=== PATIENT | female | born 1995 | race African-American/Black ===

== ENCOUNTER 2018-06-06 12:03 | Emergency (ER) | payer OTHER ==
[~2018-06-06] VITALS: Ht 170.2 cm; Wt 71.5 kg
[2018-06-06] MEDS ORDERED: IV NORMAL SALINE 1,000ML 1,000 ML IV SCH (12:26)
[2018-06-06] MEDS ORDERED: ONDANSETRON PF 4 MG/2 ML VIAL. IV ONE (12:30)
[2018-06-06 12:47] LABS: BACTERIA,URINE FEW /HPF (0-FEW); BILIRUBIN,URINE NEG (NEG); CLARITY,URINE HAZY; COLOR,URINE AMBER; GLUCOSE,URINE NEG (NEG); NITRITE,URINE NEG (NEG); RBC,URINE RARE /HPF (0-2); SQUAMOUS EPITHELIAL CELL,UR MOD /LPF; UROBILINOGEN,URINE 4 mg/dL (0.2 mg/dL)
[2018-06-06 12:57] LABS: BASO % 0 % (0-3); EOS # 0.1 x10^3/uL (0.0-0.7); EOS % 2 % (0-3); HEMATOCRIT 40.4 % (36.0-47.0); LYMPH # 1.4 x10^3/uL (1.0-4.8); LYMPH % 27 % (24-48); MEAN CORPUSCULAR HEMOGLOBIN 27 pg (25-35); MEAN CORPUSCULAR HGB CONC 32 g/dL (31-37); MEAN CORPUSCULAR VOLUME 82 fL (79-100); MONO # 0.6 x10^3/uL (0.0-1.1); MONO % 10 % (0-9); NEUT # 3.2 x10^3uL (1.8-7.7); NEUT % 60 % (31-73); PLATELET COUNT 126 x10^3/uL (140-400); RED BLOOD COUNT 4.91 x10^6/uL (3.50-5.40); RED CELL DISTRIBUTION WIDTH 16.6 % (11.5-14.5); WHITE BLOOD COUNT 5.3 x10^3/uL (4.0-11.0)
[2018-06-06 13:02] LABS: ALBUMIN 3.9 g/dL (3.4-5.0); ALBUMIN/GLOBULIN RATIO 1.1 (1.0-1.7); CALCIUM 8.8 mg/dL (8.5-10.1); CREATININE 0.8 mg/dL (0.6-1.0); GFR 109.6; POTASSIUM 3.5 mmol/L (3.5-5.1); TOTAL BILIRUBIN 0.8 mg/dL (0.2-1.0); TOTAL PROTEIN 7.5 g/dL (6.4-8.2)
[2018-06-06 13:09] VITALS: BP 136/87
[2018-06-06] MEDS ORDERED: ONDA4TAB7 PO (13:29)
--- NOTE | 2018-06-06 13:30 | PHYS DOC ---
Past History Past Medical History: Other Past Surgical History: Other Alcohol Use: Occasionally Drug Use: None Adult General Chief Complaint Chief Complaint: NAUSEA/VOMITING/DIARRHEA HPI HPI Patient is a 22 year old female who presents with complaining of nausea and vomiting during . Patient is A1 at 6 weeks of gestation with LMP of April 25, 2018 with complaining of constant nausea and one episode of vomiting daily for the last 1 week. Patient states she time she tries to eat she had nausea and episodes of vomiting. Patient complaining of decrease of urine output and episodes of [abdominal crampy pain during vomiting. Patient denies vaginal bleeding, fever and chills, focal neuro deficit. Patient states she had hyperemesis gravidarum with her previous . Patient states she was seen at [place] emergency room today and diffuse of medication and was told to follow up with [facility] tomorrow. According to [place] emergency room report patient left AMA and refused to have urine test and requested admission for hyperemesis gravidarum. She did not complaining of any abdominal pain at [facility]. Review of Systems Review of Systems Constitutional: Denies fever or chills [] Eyes: Denies change in visual acuity, redness, or eye pain [] HENT: Denies nasal congestion or sore throat [] Respiratory: Denies cough or shortness of breath [] Cardiovascular: No additional information not addressed in HPI [] GI: Reports abdominal pain, nausea, vomiting, denies bloody stools or diarrhea [ ] : Denies dysuria or hematuria [] Musculoskeletal: Denies back pain or joint pain [] Integument: Denies rash or skin lesions [] Neurologic: Denies headache, focal weakness or sensory changes [] Endocrine: Denies polyuria or polydipsia [] All other systems were reviewed and found to be within normal limits, except as documented in this note. Current Medications Current Medications Current Medications Medications (Trade) Dose Ordered Sig/Elaine Start Time Stop Time Status Last Admin Dose Admin Ondansetron HCl (Zofran) 4 mg 1X ONCE 06/06/18 12:30 06/06/18 13:00 DC 06/06/18 12:53 4 MG Sodium Chloride 1,000 ml @ 1,000 mls/hr Q1H 06/06/18 12:26 06/06/18 13:25 DC 06/06/18 12:53 1,000 MLS/HR Allergies Allergies Allergies Coded Allergies Type Severity Reaction Last Updated Verified Penicillins Allergy Unknown 06/06/18 Yes Physical Exam Physical Exam Constitutional: Well developed, well nourished, mild distress, non-toxic appearance. [] HENT: Normocephalic, atraumatic, oropharynx moist, no oral exudates, nose normal. [] Eyes: PERRLA, EOMI, conjunctiva normal, no discharge. [] Neck: Normal range of motion, no tenderness, supple, no stridor. [] Cardiovascular:Heart rate regular rhythm, no murmur [] Lungs & Thorax: Bilateral breath sounds clear to auscultation [] Abdomen: Bowel sounds normal, soft, no tenderness, no masses, no pulsatile masses. [] Skin: Warm, dry, no erythema, no rash. [] Back: No tenderness, no CVA tenderness. [] Extremities: No tenderness, no cyanosis, no clubbing, ROM intact, no edema. [] Neurologic: Alert and oriented X 3, normal motor function, normal sensory function, no focal deficits noted. [] Psychologic: Affect normal, judgement normal, mood normal. [] Current Patient Data Vital Signs Vital Signs Date Time Temp Pulse Resp B/P (MAP) Pulse Ox O2 Delivery O2 Flow Rate FiO2 06/06/18 12:03 98.5 64 14 100 Room Air Lab Results Laboratory Tests Test 06/06/18 12:10 06/06/18 12:23 06/06/18 12:32 Urine Collection Type Unknown Urine Color Carlota Urine Clarity Hazy Urine pH 7.5 Urine Specific [place] 1.020 Urine Protein 30 mg/dl (NEG-TRACE) Urine Glucose (UA) Neg mg/dL (NEG) Urine Ketones (Stick) 40 mg/dL (NEG) Urine Blood Neg (NEG) Urine Nitrite Neg (NEG) Urine Bilirubin Neg (NEG) Urine Urobilinogen Dipstick 4 mg/dL (0.2 mg/dL) Urine Leukocyte Esterase Trace (NEG) Urine RBC Rare /HPF (0-2) Urine WBC 1-4 /HPF (0-4) Urine Squamous Epithelial Cells Mod /LPF Urine Bacteria Few /HPF (0-FEW) Urine Mucus Marked /LPF POC Urine HCG, Qualitative hcg positive (Negative) White Blood Count 5.3 x10^3/uL (4.0-11.0) Red Blood Count 4.91 x10^6/uL (3.50-5.40) Hemoglobin 13.0 g/dL (12.0-15.5) Hematocrit 40.4 % (36.0-47.0) Mean Corpuscular Volume 82 fL (79-100) Mean Corpuscular Hemoglobin 27 pg (25-35) Mean Corpuscular Hemoglobin Concent 32 g/dL (31-37) Red Cell Distribution Width 16.6 % (11.5-14.5) H Platelet Count 126 x10^3/uL (140-400) L Neutrophils (%) (Auto) 60 % (31-73) Lymphocytes (%) (Auto) 27 % (24-48) Monocytes (%) (Auto) 10 % (0-9) H Eosinophils (%) (Auto) 2 % (0-3) Basophils (%) (Auto) 0 % (0-3) Neutrophils # (Auto) 3.2 x10^3uL (1.8-7.7) Lymphocytes # (Auto) 1.4 x10^3/uL (1.0-4.8) Monocytes # (Auto) 0.6 x10^3/uL (0.0-1.1) Eosinophils # (Auto) 0.1 x10^3/uL (0.0-0.7) Basophils # (Auto) 0.0 x10^3/uL (0.0-0.2) Sodium Level 136 mmol/L (136-145) Potassium Level 3.5 mmol/L (3.5-5.1) Chloride Level 101 mmol/L (98-107) Carbon Dioxide Level 25 mmol/L (21-32) Anion Gap 10 (6-14) Blood Urea Nitrogen 7 mg/dL (7-20) Creatinine 0.8 mg/dL (0.6-1.0) Estimated GFR (Cockcroft-Gault) 109.6 BUN/Creatinine Ratio 9 (6-20) Glucose Level 85 mg/dL (70-99) Calcium Level 8.8 mg/dL (8.5-10.1) Total Bilirubin 0.8 mg/dL (0.2-1.0) Aspartate Amino Transferase (AST) 12 U/L (15-37) L Alanine Aminotransferase (ALT) 14 U/L (14-59) Alkaline Phosphatase 60 U/L (46-116) Total Protein 7.5 g/dL (6.4-8.2) Albumin 3.9 g/dL (3.4-5.0) Albumin/Globulin Ratio 1.1 (1.0-1.7) EKG EKG [] Radiology/Procedures Radiology/Procedures [] Course & Med Decision Making Course & Med Decision Making Pertinent Labs reviewed. (See chart for details) Evaluation of patient in ER showed 22-year-old female patient at 6 weeks of gestation with complaining of episodes of nausea and vomiting. Patient had unremarkable physical exam and labs beta-hCG level of 37,000. Patient did not have vaginal bleeding. Patient tolerated oral intake. Patient was advised to follow-up with [facility] and prescription for Zofran was given. Dragon Disclaimer Dragon Disclaimer This electronic medical record was generated, in whole or in part, using a voice recognition dictation system. Departure Departure: Impression: Primary Impression: Hyperemesis gravidarum Disposition: HOME, SELF-CARE (@1330) Condition: IMPROVED Referrals: LUIS WISEMAN PA-C (PCP) Patient Instructions: Diet - Hyperemesis Gravidarum, Hyperemesis Gravidarum Additional Instructions: Drink plenty of liquids Follow-up with your [facility] physician in 2 or 3 days Return to ER if not getting better Scripts Ondansetron Hcl (ZOFRAN) 4 Mg Tablet 1 TAB PO Q6HRS for nausea and vomiting, #24 TAB Prov: BELGICA WEST MD 06/06/18 BELGICA WEST MD Jun 06, 2018 13:30
== END 2018-06-06 13:44 | disposition home or self-care (01) ==
LOC: ER 12:03
DX: O21.0 Mild hyperemesis gravidarum (principal); Z88.0 Allergy status to penicillin; Z3A.01 Less than 8 weeks gestation of pregnancy
CPT/HCPCS: 36415; 80053; 81001; 81025; 84702; 85025; 87086; 96361; 96374; 99283; J2405; J7030

== ENCOUNTER 2019-07-18 07:52 | Emergency (ER) | payer OTHER ==
[~2019-07-18] VITALS: Ht 170.2 cm; Wt 73.0 kg
[~2019-07-18 07:52] MED LIST: ONDA4TAB7 PO
[2019-07-18] MEDS ORDERED: ONDANSETRON PF 4 MG/2 ML VIAL. ONE (08:10)
--- NOTE | 2019-07-18 08:11 | PHYS DOC ---
Past History Past Medical History: Other Past Surgical History: Other Alcohol Use: Occasionally Drug Use: None Adult General Chief Complaint Chief Complaint: ABDOMINAL PAIN HPI HPI Patient is a 23-year-old female who presents with complaint of diarrhea with crampy abdominal pain and some nausea since 2:00 this morning. Patient had intermittent symptoms over the weekend but they seem to be improving. No reported fever although the patient states that she has felt very warm and had sweats last night. No medications taken prior to arrival. No sick contacts. Patient started her menstrual cycle on Thursday Review of Systems Review of Systems All other systems were reviewed and found to be within normal limits, except as documented in this note. Allergies Allergies Allergies Coded Allergies Type Severity Reaction Last Updated Verified Penicillins Allergy Unknown 06/06/18 Yes Physical Exam Physical Exam Constitutional: Well developed, well nourished, no acute distress, non-toxic appearance. [] HENT: Normocephalic, atraumatic, bilateral external ears normal, oropharynx moist, no oral exudates, nose normal. [] Eyes: PERRLA, EOMI, conjunctiva normal, no discharge. [] Neck: Normal range of motion, no tenderness, supple, no stridor. [] Cardiovascular:Heart rate regular rhythm, no murmur [] Lungs & Thorax: Bilateral breath sounds clear to auscultation [] Abdomen: Bowel sounds normal, soft, no tenderness, no masses, no pulsatile masses. [] Skin: Warm, dry, no erythema, no rash. [] Back: No tenderness, no CVA tenderness. [] Extremities: No tenderness, no cyanosis, no clubbing, ROM intact, no edema. [] Neurologic: Alert and oriented X 3, normal motor function, normal sensory function, no focal deficits noted. [] Psychologic: Affect normal, judgement normal, mood normal. [] EKG EKG [] Radiology/Procedures Radiology/Procedures [] Course & Med Decision Making Course & Med Decision Making Pertinent Labs and Imaging studies reviewed. (See chart for details) 0810: 23-year-old female seen for gastrointestinal-like symptoms. Will place an IV and give IV fluids and check labs. Will also check for influenza and give Zofran. 0904: Labs wnl. Will d/c. Valente Disclaimer Valente Disclaimer This electronic medical record was generated, in whole or in part, using a voice recognition dictation system. Departure Departure: Impression: Primary Impression: Viral gastroenteritis Disposition: 01 HOME, SELF-CARE Condition: STABLE Referrals: PCP,TEETEE (PCP) Patient Instructions: Viral Gastroenteritis Scripts Dicyclomine Hcl (DICYCLOMINE HCL) 20 Mg Tablet 1 TAB PO TID for Abd Cramping, #20 TAB 0 Refills Prov: EDWARD GRAY DO 07/18/19 Ondansetron (ONDANSETRON ODT) 4 Mg Tab.rapdis 4 MG PO Q6HRS for Nausea/Vomiting, #15 TAB Prov: EDWARD GRAY DO 07/18/19 EDWARD GRAY DO Jul 18, 2019 08:10
[2019-07-18 08:14] VITALS: BP 127/78
[2019-07-18] MEDS ORDERED: IV NORMAL SALINE 1,000ML 1,000 ML IV ONE (08:15)
[2019-07-18] MEDS ORDERED: ONDANSETRON PF 4 MG/2 ML VIAL. IVP ONE (08:15)
[2019-07-18 08:29] LABS: BASO % 0 % (0-3); EOS # 0.1 x10^3/uL (0.0-0.7); EOS % 1 % (0-3); HEMATOCRIT 39.4 % (36.0-47.0); HEMOGLOBIN 12.8 g/dL (12.0-15.5); LYMPH # 1.4 x10^3/uL (1.0-4.8); LYMPH % 23 % (24-48); MEAN CORPUSCULAR HEMOGLOBIN 27 pg (25-35); MEAN CORPUSCULAR HGB CONC 32 g/dL (31-37); MEAN CORPUSCULAR VOLUME 83 fL (79-100); MONO # 0.5 x10^3/uL (0.0-1.1); MONO % 8 % (0-9); NEUT # 4.1 x10^3uL (1.8-7.7); NEUT % 68 % (31-73); PLATELET COUNT 140 x10^3/uL (140-400); RED BLOOD COUNT 4.74 x10^6/uL (3.50-5.40); RED CELL DISTRIBUTION WIDTH 14.5 % (11.5-14.5); WHITE BLOOD COUNT 6.1 x10^3/uL (4.0-11.0)
[2019-07-18 08:36] LABS: CALCIUM 8.5 mg/dL (8.5-10.1); CREATININE 0.9 mg/dL (0.6-1.0); GFR 94.7; POTASSIUM 3.8 mmol/L (3.5-5.1)
[2019-07-18 08:42] LABS: ALBUMIN 3.6 g/dL (3.4-5.0); ALBUMIN/GLOBULIN RATIO 1.1 (1.0-1.7); TOTAL BILIRUBIN 0.3 mg/dL (0.2-1.0); TOTAL PROTEIN 6.9 g/dL (6.4-8.2)
[2019-07-18 08:45] LABS: BACTERIA,URINE 0 /HPF (0-FEW); BILIRUBIN,URINE NEG (NEG); CLARITY,URINE HAZY; COLOR,URINE YELLOW; GLUCOSE,URINE NEG (NEG); NITRITE,URINE NEG (NEG); SQUAMOUS EPITHELIAL CELL,UR FEW /LPF; UROBILINOGEN,URINE 0.2 mg/dL (0.2 mg/dL); WBC,URINE OCC /HPF (0-4)
[2019-07-18 08:46] LABS: U PREG PATIENT NEGATIVE (NEG)
[2019-07-18 08:53] LABS: INFLUENZA A PATIENT NEGATIVE (NEGATIVE); INFLUENZA B PATIENT NEGATIVE (NEGATIVE)
[2019-07-18] MEDS ORDERED: ONDA4TAB12 PO (09:05)
[2019-07-18] MEDS ORDERED: DICY20TA3 PO (09:05)
== END 2019-07-18 09:15 | disposition home or self-care (01) ==
LOC: ER 07:52
DX: A08.4 Viral intestinal infection, unspecified (principal); Z88.0 Allergy status to penicillin
CPT/HCPCS: 36415; 80053; 81001; 81025; 83690; 85025; 87804; 96361; 96374; 99283; J2405; J7030

== ENCOUNTER 2019-10-26 15:36 | Emergency (ER) | payer OTHER ==
[~2019-10-26] VITALS: Ht 170.2 cm; Wt 75.0 kg
[~2019-10-26 15:36] MED LIST changes: +DICY20TA3 PO; +ONDA4TAB12 PO
--- NOTE | 2019-10-26 15:50 | PHYS DOC ---
Past History Past Medical History: No Pertinent History Additional Past Surgical Histo: [place] teeth Smoking: Non-smoker Alcohol Use: Occasionally Drug Use: None General Adult EDM: Chief Complaint: BACK INJURY HPI: HPI: 23-year-old female presents with acute on chronic low back pain. Patient reports occurred after lifting some boxes at her work. Reports a sensation that her "back gave out ". Reports radiation of pain down right leg. Patient reports has been having back pain ongoing for the past 10 months. Had previously been seen at [facility]. Denies loss of bowel or bladder. Denies dysuria or hematuria. Denies fever or chills. Denies rash. Denies . Review of Systems: Review of Systems: Constitutional: Denies fever or chills Eyes: Denies redness or eye pain HENT: Denies nasal congestion or sore throat Respiratory: Denies cough or shortness of breath Cardiovascular: Denies chest pain or palpitations GI: Denies abdominal pain, nausea, or vomiting : Denies dysuria or hematuria Musculoskeletal: Reports back pain and right leg pain Integument: Denies rash or skin lesions Neurologic: Denies headache, focal weakness or sensory changes Complete systems were reviewed and found to be within normal limits, except as documented in this note. Allergies: Allergies: Allergies Coded Allergies Type Severity Reaction Last Updated Verified Penicillins Allergy Unknown 06/06/18 Yes Physical Exam: PE: Constitutional: Well developed, well nourished, no acute distress, non-toxic appearance HENT: Normocephalic, atraumatic Eyes: Conjunctiva normal, no discharge Neck: Normal range of motion, no tenderness, supple Lungs & Thorax: Equal chest rise and fall, no respiratory distress Skin: Warm, dry, no erythema, no rash Back: No midline tenderness, right lumbar paraspinal tenderness, pain with right leg raise to 20 degrees, no CVA tenderness Extremities: No tenderness, ROM intact, no edema Neurologic: Alert and oriented X 3, no focal deficits noted Psychologic: Affect normal, judgment normal EKG: EKG: [] Radiology/Procedures: Radiology/Procedures: [] Course & Med Decision Making: Course & Med Decision Making Patient presents with HPI concerning for acute on chronic low back pain with associated right-sided sciatica. Denies loss of bowel or bladder. Patient is afebrile. Denies . Pain addressed. Patient stable for discharge with outpatient follow-up with PCP/pain management. Pain management referral provided. Discussed findings and plan with patient, who acknowledges understanding and agreement. Valente Disclaimer: Valente Disclaimer: This electronic medical record was generated, in whole or in part, using a voice recognition dictation system. Departure Departure: Impression: Primary Impression: Back pain Qualified Codes: M54.41 - Lumbago with sciatica, right side Additional Impression: Sciatica Qualified Codes: M54.31 - Sciatica, right side Disposition: 01 HOME/RESIDENCE PRIOR TO ADM Condition: STABLE Referrals: JANICE URIARTE (PCP) Patient Instructions: Back Pain, Adult, [id number], Sciatica, [id number] Additional Instructions: Please call Dr. Dario Connell (Pain managment) at [facility] to schedule an appointment for further evaluation and treatment. Pain Medicine- [address], [address] [place] [address] Scripts Prednisone (PREDNISONE) 20 Mg Tablet 2 TAB PO DAILY for Back pain, #8 TAB Start this prescription tomorrow, 10/27/19 Prov: HAL PETTY DO 10/26/19 Hydrocodone Bit/Acetaminophen (NORCO 5-325 TABLET) 1 Each Tablet 0.5-1 TAB PO Q6HRS PRN for PAIN, #10 TAB Prov: HAL PETTY DO 10/26/19 Orphenadrine Citrate (ORPHENADRINE CITRATE) 100 Mg Tablet.er 1 TAB PO BID PRN for MUSCLE PAIN, #14 TAB 0 Refills Prov: HAL PETTY DO 10/26/19 Justification of Admission: Justification of Admission: Justification of Admission Dx: N/A HAL PETTY DO Oct 26, 2019 15:49
[2019-10-26 15:51] VITALS: BP 118/81
[2019-10-26] MEDS ORDERED: KETOROLAC 30 MG/ML VIAL. IM ONE (16:00)
[2019-10-26] MEDS ORDERED: DEXAMETHASONE 4 MG TABLET PO ONE (16:00)
[2019-10-26] MEDS ORDERED: PRED20TA PO (16:01)
[2019-10-26] MEDS ORDERED: ORPH-16 PO (16:01)
[2019-10-26] MEDS ORDERED: HYDR-3165 PO (16:01)
== END 2019-10-26 16:29 | disposition home or self-care (01) ==
LOC: ER 15:36
DX: M54.41 Lumbago with sciatica, right side (principal); G89.11 Acute pain due to trauma; Z88.0 Allergy status to penicillin; W18.39XA Other fall on same level, initial encounter; Y93.89 Activity, other specified; Y92.69 Other specified industrial and construction area as the place of occurrence of the external cause; Y99.0 Civilian activity done for income or pay
CPT/HCPCS: 96372; 99284; J1885; J8540

== ENCOUNTER 2020-07-16 13:01 | Emergency (ER) | payer OTHER ==
[~2020-07-16] VITALS: Ht 170.2 cm; Wt 80.0 kg
[~2020-07-16 13:01] MED LIST changes: +HYDR-3165 PO; +ORPH-16 PO; +PRED20TA PO
[2020-07-16 13:12] VITALS: BP 137/87
--- NOTE | 2020-07-16 13:21 | PHYS DOC ---
Past History Past Medical History: No Pertinent History (HAL ALLISON APRN) Additional Past Surgical Histo: [place] teeth (HAL ALLISON APRN) Smoking: Non-smoker Alcohol Use: Occasionally Drug Use: None (HAL ALLISON APRN) Adult General HPI HPI Patient is a 24-year-old female presents to the emergency department with complaints of headache, nausea, vomiting since Thursday morning. Patient states a pallet fell onto the top of her head while she was at work Thursday at approximately 1600, patient denied any loss of consciousness, denied any head pain or neck pain at the time, states that she felt fine and continue to work. Patient states the next day when she woke up she had symptoms of headache with nausea and vomiting. Patient denies any abdominal discomfort, constipation or diarrhea. She denies chest pain, chest congestion, or nasal congestion. Patient denies any rashes of her skin. Patient denies any vision disturbances or other neurological complaints. Patient denies numbness or tingling to her extremities. Patient denies urinary tract infection signs and symptoms, denies vaginal discharge, denies STI concerns. Patient currently complains of pain to her head and the right side of her neck which she rates an 8/10 on a 1-10 pain scale, nausea, photophobia. Patient reports she has been taking [id number] Tylenol, Advil, and Excedrin without relief of symptoms. Patient has not tried any other therapies for pain relief at home. (HAL ALLISON APRN) Review of Systems Review of Systems 14 body systems of review of systems have been reviewed. See HPI for pertinent positives and negative responses, otherwise all other systems are negative, nonpertinent or noncontributory. (HAL ALLISON APRN) Allergies Allergies Allergies Coded Allergies Type Severity Reaction Last Updated Verified Penicillins Allergy Unknown 06/06/18 Yes (HAL ALLISON APRN) Physical Exam Physical Exam Constitutional: Well developed, well nourished, no acute distress, non-toxic appearance. 24-year-old female, in no apparent distress, wearing sunglasses during physical exam with complaints of photophobia. HENT: Normocephalic, atraumatic, bilateral external ears normal, oropharynx moist, no oral exudates, nose normal. No lymphadenopathy of the head or neck appreciated, bilateral TMs within normal limits, bilateral external auditory canals within normal limits, no gunderson sign appreciated, no raccoon sign appreciated, oropharynx pink, moist, no infectious process appreciated. No areas of ecchymosis, swelling, or depressions of the skull appreciated. Patient did complain of palpation at the top of her head. Eyes: PERRLA, EOMI, conjunctiva normal, no discharge. Complains of photophobia during eye exam Neck: Normal range of motion, no tenderness, supple, no stridor. Midline spinal tenderness with palpation without nuchal rigidity or meningismus signs Cardiovascular:Heart rate regular rhythm, no murmur, heart sounds S1-S2 to auscultation. Lungs & Thorax: Bilateral breath sounds clear to auscultation all lung short, no adventitious lung sounds appreciated. Abdomen: Bowel sounds normal, soft, no tenderness, no masses, no pulsatile masses. Skin: Warm, dry, no erythema, no rash. Back: No tenderness, no CVA tenderness. Extremities: No tenderness, no cyanosis, no clubbing, ROM intact, no edema. Neurologic: Alert and oriented X 3, normal motor function, normal sensory function, no focal deficits noted. Psychologic: Affect normal, judgement normal, mood normal. (HAL ALLISON APRN) Current Patient Data Lab Results Laboratory Tests Test 07/16/20 14:20 07/16/20 14:42 Urine Collection Type Unknown Urine Color Yellow Urine Clarity Clear Urine pH 7.0 Urine Specific [place] 1.020 Urine Protein Neg Urine Glucose (UA) Neg mg/dL Urine Ketones (Stick) Neg mg/dL Urine Blood Neg Urine Nitrite Neg Urine Bilirubin Neg Urine Urobilinogen Dipstick 0.2 mg/dL Urine Leukocyte Esterase Neg Urine RBC Occ /HPF Urine WBC Occ /HPF Urine Squamous Epithelial Cells Many /LPF Urine Bacteria Few /HPF Bedside Urine HCG, Qualitative hcg negative Current Medications Medications (Trade) Dose Ordered Sig/Elaine Route PRN Reason Start Time Stop Time Status Last Admin Dose Admin Ondansetron HCl (Zofran Odt) 4 mg 1X ONCE PO 07/16/20 13:30 07/16/20 13:38 DC 07/16/20 14:34 Acetaminophen (Tylenol) 1,000 mg 1X ONCE PO 07/16/20 15:00 07/16/20 15:01 DC Laboratory Tests Test 07/16/20 14:42 Bedside Urine HCG, Qualitative hcg negative Current Medications Medications (Trade) Dose Ordered Sig/Elaine Route PRN Reason Start Time Stop Time Status Last Admin Dose Admin Ondansetron HCl (Zofran Odt) 4 mg 1X ONCE PO 07/16/20 13:30 07/16/20 13:38 DC 07/16/20 14:34 Acetaminophen (Tylenol) 1,000 mg 1X ONCE PO 07/16/20 15:00 07/16/20 15:01 UNV (HAL ALLISON APRN) EKG EKG [] (HAL ALLISON APRN) Radiology/Procedures Radiology/Procedures PATIENT: DEBORAH MIRAMONTES SACCOUNT: [id number] : 1995 LOCATION: ER AGE: 24 SEX: F EXAM STATUS: REG ER ORD. PHYSICIAN: HAL ALLISON APRN REASON: BLUNT HEAD INJURY PROCEDURE: CT HEAD AND CERVICAL SPINE WO CT HEAD AND C-SPINE WO Date: 07/16/2020 1:51 PM Clinical Indication: Pain, BLUNT HEAD INJURY Comparison: None. Technique: 5 mm axial tomographic images were obtained of the head without contrast. These were viewed on brain and bone windows. CT imaging of the cervical spine was performed without contrast. Coronal and sagittal reformatted images were performed. One or more of the following dose reduction techniques were utilized: Automated exposure control (AEC), Adjustment of mA and/or kV according to patient size, Use of iterative reconstruction technique such as ASiR, CT scan done according to ALARA and image gently/image wisely HEAD FINDINGS: The brain parenchyma is normal in attenuation. No intra- or extra-axial mass or fluid collection. No acute hemorrhage. The ventricles are normal in size, shape, and morphology. The domingo-white matter junction is normal. The basilar cisterns are patent. The visualized paranasal sinuses are normal. The visualized portions of the orbits and globes are normal. The mastoid air cells are clear. No aggressive osseous lesion or fracture. CERVICAL SPINE FINDINGS: The cervical spine is normally aligned. No acute fracture. No aggressive lytic or blastic osseous lesion. The intervertebral disc heights are maintained. No high-grade spinal canal stenosis or neural foraminal narrowing. The thyroid gland is normal. No cervical lymphadenopathy. The visualized aerodigestive tract is unremarkable. The visualized lung apices are clear. IMPRESSION: 1. No acute intracranial process. 2. No acute osseous abnormality of the cervical spine. Electronically signed by: Jacob Brown MD (07/16/2020 1:57 PM) [id number] DICTATED AND SIGNED BY: JACOB BROWN MD DATE: 07/16/20 135 CC: HAL ALLISON APRN; GARYADELAIDEEROSJANICE ~MTH0 0 (HAL ALLISON APRN) Heart Score C/O Chest Pain: No Risk Factors: Risk Factors: DM, Current or recent (<one month) smoker, HTN, HLP, family history of CAD, obesity. Risk Scores: Risk Factors: DM, Current or recent (<one month) smoker, HTN, HLP, family history of CAD, obesity. (HAL ALLISON APRN) Course & Med Decision Making Course & Med Decision Making Pertinent Labs and Imaging studies reviewed. (See chart for details) 24-year-old female, vital signs reviewed, presents to the emergency department with concerns of nausea vomiting and head pain after a pallet fell on her head this past Thursday. Physical examination concerning for possible closed head injury with concussive symptoms, no bruising, ecchymosis, swelling, gunderson sign, raccoon sign was appreciated, will order CT head and C-spine without contrast, urinalysis with urine test, will defer pain medication at this time related to urine test pending, patient drove herself and does not have anyone to pick her up. We will give ODT Zofran for nausea. CT head and C-spine negative for acute process, the patient's urine was not infected, the patient was not , will order 1 g Tylenol p.o. for headache of 8/10 on a 1-10 pain scale along with ODT Zofran for nausea. Reviewed CT imaging results with patient, ED planning discharged home with close follow-up with PCP, head injury precautions, concussion education, patient was amenable to this plan, patient gave verbal understanding of discharge home instructions, follow-up with PCP tomorrow, return to ER precautions and concerns, discharged home without incident. (HAL ALLISON APRN) Course & Med Decision Making I oversaw care of patient and reviewed ER course with SEWING MACHINE REPAIRER. I agree to note and plan of care as stated. Electronically signed, Benjamin Bermudez DO (BENJAMIN BERMUDEZ DO) Valente Disclaimer Valente Disclaimer This electronic medical record was generated, in whole or in part, using a voice recognition dictation system. (HAL ALLISON APRN) Departure Departure: Impression: Primary Impression: Head injury, closed, without LOC Additional Impressions: Headache Neck pain Concussion syndrome Disposition: 01 DC HOME SELF CARE/HOMELESS Condition: GOOD Referrals: JANICE URIARTE (PCP) Patient Instructions: Concussion and Brain Injury, Head Injury, Adult Additional Instructions: You were evaluated today in the emergency department after a closed head injury, CT imaging was unremarkable, your symptoms are consistent with concussion syndrome, I have attached education material related to concussion and head injury to this document, please review, we discussed you following up tomorrow with your primary care doctor for ongoing evaluation of symptoms, please return to the emergency department for worsening symptoms or other concerns. EMERGENCY DEPARTMENT GENERAL DISCHARGE INSTRUCTIONS Thank you for coming to [facility] (ED) today and trusting us with you care. We trust that you had a positivie experience in our Emergency Department. If you wish to speak to the department management, you may call the director at [phone]. YOUR FOLLOW UP INSTRUCTIONS ARE FOLLOWS: 1. Do you have a private Doctor? If you do not have a private doctor, please ask for a resource list of physicians or clinics that may be able to assist you with follow up care. 2. The Emergency Physician has interpreted your x-rays. The X-Ray specialist will also review them. If there is a change in the findings, you will be notified in 48 hours when at all possible. 3. A lab test or culture has been done, your results will be reviewed and you will be notified if you need a change in treatment. ADDITIONAL INSTRUCTIONS AND INFORMATION: 1. Your care today has been supervised by a physician who is specially trained in emergency care. Many problems require more than one evaluation for a complete diagnosis and treatment. We recommend that you schedule your follow up appointment as recommended to ensure complete treatment of you illness or injury. If you are unable to obtain follow up care and continue to have a problem, or if your condition worsens, we recommend that you return to the ED. 2. We are not able to safely determine your condition over the phone nor are we able to give sound medical advice over the phone. For these safety reasons, if you call for medical advice we will ask you to come to the ED for further evaluation. 3. If you have any questions regarding these discharge instructions please call the ED at [phone]. SAFETY INFORMATION: In the interest of safety, wellness, and injury prevention; we encourage you to wear your sealbelt, if you smoke; quite smoking, and we encourage family to use a protective helmet for bicycling and other sporting events that present an increased risk for head injury. IF YOUR SYMPTOMS WORSEN OR NEW SYMPTOMS DEVELOP, OR YOU HAVE CONCERNS ABOUT YOUR CONDITION; OR IF YOUR CONDITION WORSENS WHILE YOU ARE WAITING FOR YOUR FOLLOW UP APPOINTMENT; EITHER CONTACT YOUR PRIMARY CARE DOCTOR, THE PHYSICIAN WHOSE NAME AND NUMBER YOU WERE GIVEN, OR RETURN TO THE ED IMMEDIATELY. Scripts Ondansetron (ONDANSETRON ODT) 4 Mg Tab.rapdis 1 TAB PO PRN Q6-8HRS for NAUSEA, #16 TAB 0 Refills Prov: HAL ALLISON APRN 07/16/20 Problem Qualifiers Primary Impression: Head injury, closed, without LOC Encounter type: initial encounter Qualified Codes: S09.90XA - Unspecified injury of head, initial encounter Additional Impressions: Headache Headache type: unspecified Headache chronicity pattern: unspecified pattern Intractability: not intractable Qualified Codes: R51.9 - Headache, unspecified HAL ALLISON APRN Jul 16, 2020 13:21 BENJAMIN BERMUDEZ DO Jul 16, 2020 22:52
[2020-07-16] MEDS ORDERED: ONDANSETRON ODT 4 MG TAB.RAPDIS PO ONE (13:30)
--- NOTE | 2020-07-16 13:59 | RAD ---
CT HEAD AND C-SPINE WO Date: 07/16/2020 1:51 PM Clinical Indication: Pain, BLUNT HEAD INJURY Comparison: None. Technique: 5 mm axial tomographic images were obtained of the head without contrast. These were view ed on brain and bone windows. CT imaging of the cervical spine was performed without contrast. Coron al and sagittal reformatted images were performed. One or more of the following dose reduction techni ques were utilized: Automated exposure control (AEC), Adjustment of mA and/or kV according to patient size, Use of iterative reconstruction technique such as ASiR, CT scan done according to ALARA and im age gently/image wisely HEAD FINDINGS: The brain parenchyma is normal in attenuation. No intra- or extra-axial mass or fluid collection. No acute hemorrhage. The ventricles are normal in size, shape, and morphology. The domingo-white matter kannan ction is normal. The basilar cisterns are patent. The visualized paranasal sinuses are normal. The visualized portions of the orbits and globes are no rmal. The mastoid air cells are clear. No aggressive osseous lesion or fracture. CERVICAL SPINE FINDINGS: The cervical spine is normally aligned. No acute fracture. No aggressive lytic or blastic osseous les ion. The intervertebral disc heights are maintained. No high-grade spinal canal stenosis or neural foramin al narrowing. The thyroid gland is normal. No cervical lymphadenopathy. The visualized aerodigestive tract is unrem arkable. The visualized lung apices are clear. IMPRESSION: 1. No acute intracranial process. 2. No acute osseous abnormality of the cervical spine. Electronically signed by: Jaycob Brown MD (07/16/2020 1:57 PM) [id number]
[2020-07-16] MEDS ORDERED: ACETAMINOPHEN 500 MG TABLET PO ONE (15:00)
[2020-07-16 15:09] LABS: BACTERIA,URINE FEW /HPF (0-FEW); BILIRUBIN,URINE NEG (NEG); CLARITY,URINE CLEAR; COLOR,URINE YELLOW; GLUCOSE,URINE NEG (NEG); NITRITE,URINE NEG (NEG); RBC,URINE OCC /HPF (0-2); SQUAMOUS EPITHELIAL CELL,UR MANY /LPF; UROBILINOGEN,URINE 0.2 mg/dL (0.2 mg/dL); WBC,URINE OCC /HPF (0-4)
[2020-07-16] MEDS ORDERED: ONDA4TAB12 PO (15:27)
== END 2020-07-16 15:42 | disposition home or self-care (01) ==
LOC: ER 13:01
DX: S09.90XA Unspecified injury of head, initial encounter (principal); F07.81 Postconcussional syndrome; R51.9 Headache, unspecified; M54.2 Cervicalgia; Z88.0 Allergy status to penicillin; W20.8XXA Other cause of strike by thrown, projected or falling object, initial encounter; Y93.89 Activity, other specified; Y92.89 Other specified places as the place of occurrence of the external cause; Y99.8 Other external cause status
CPT/HCPCS: 70450; 72125; 81001; 81025; 99285; Q0162

== ENCOUNTER 2020-07-19 16:30 | Emergency (ER) | payer OTHER ==
[~2020-07-19] VITALS: Ht 170.2 cm; Wt 86.4 kg
--- NOTE | 2020-07-19 17:08 | PHYS DOC ---
Past History Past Medical History: No Pertinent History, Migraines Past Surgical History: Other Additional Past Surgical Histo: [place] teeth Smoking: Non-smoker Alcohol Use: Occasionally Drug Use: None Adult General Chief Complaint Chief Complaint: HEADACHE HPI HPI Patient is a 24-year-old female complaining of sequelae from closed head injury. Patient reports being at work 6 days ago when a pallet fell and hit the front/anterior portion of the forehead. She was able to continue work without any gait abnormalities or other problems. Nonetheless, patient reports worsening head pain prompting her to come in for evaluation 4 days later. She was seen at our facility 3 days ago, 07/16/2020, and fully evaluated for ongoing head pain. Patient had extensive work-up that was grossly unremarkable and included a noncontrast head and neck CT showing no abnormalities. Patient reports following up with her primary care physician who administered an IM Toradol injection for pain and advised ongoing supportive care. Nonetheless, patient states she has " maxed out" Tylenol and ibuprofen use alternating use between the 2 medications every 6 hours without significant reduction in pain. She is here today for pain relief, states majority of her pain is in the occiput and bilateral neck areas. Denies any syncope, trouble sleeping, diplopia, blurred vision, chest pain, shortness of breath, bladder or bowel incontinence, motor or sensory function changes, no neurologic deficits reported Review of Systems Review of Systems Fourteen body systems of review of systems have been reviewed. See HPI for pertinent positives and negative responses, other jordan all other systems are negative, non-pertinent or non-contributory Allergies Allergies Allergies Coded Allergies Type Severity Reaction Last Updated Verified Penicillins Allergy Unknown 07/19/20 Yes Physical Exam Physical Exam General: Appears well, non toxic, and comfortable Skin: Warm, dry. Normal for ethnicity. HEENT: Atraumatic. PERRLA. Moist mucous membranes. EOMI Neck: Trachea midline. Normal ROM. No midline tenderness, taut muscle bellies of bilateral paracervical muscles and trapezius Respiratory: Normal WOB. CTAB w/o w/r/r. No tachypnea. Cardiovascular: Regular rate and rhythm. Normal peripheral perfusion. No edema. Abdomen: Soft. Non tender. No distension. Back: Normal ROM. Musculoskeletal: No swelling or deformity. Neuro: Alert and oriented x 4. GCS 15. Gait unremarkable, CN II-XII intact. Normal strength and sensation. Normal speech. Psych: Normal affect and mood. Current Patient Data Vital Signs Vital Signs Date Time Temp Pulse Resp B/P (MAP) Pulse Ox O2 Delivery O2 Flow Rate FiO2 07/19/20 16:39 98.9 71 18 132/84 (100) 96 Room Air EKG EKG [] Radiology/Procedures Radiology/Procedures [] Heart Score C/O Chest Pain: No Risk Factors: Risk Factors: DM, Current or recent (<one month) smoker, HTN, HLP, family history of CAD, obesity. Risk Scores: Risk Factors: DM, Current or recent (<one month) smoker, HTN, HLP, family history of CAD, obesity. Course & Med Decision Making Course & Med Decision Making Hemodynamically stable patient with grossly nonconcerning history and physical exam. Discussed most likely diagnosis of sequelae of closed head injury with concussion type symptoms Discussed case at length with patient. Discussed little utility in further ER work-up. Discussed fact that patient is not fully maxed out on ibuprofen and/or Tylenol use daily that is within safe ranges. I discussed need to avoid narcotics and other medications that are unnecessary at present Discussed need to follow-up in outpatient setting with primary care physician to discuss need for outpatient physical therapy and/or sports med referral Continued supportive care provided. Patient was educated on concussion symptoms and strict signs and symptoms that should prompt immediate medical reevaluation. All questions and concerns addressed prior to departure in stable condition Dragon Disclaimer Dragon Disclaimer This electronic medical record was generated, in whole or in part, using a voice recognition dictation system. Departure Departure: Impression: Primary Impression: Concussion syndrome Additional Impressions: Neck pain Headache Disposition: 01 DC HOME SELF CARE/HOMELESS Condition: STABLE Referrals: RUBY DILLARD DO (PCP) Patient Instructions: Concussion-SportsMed Additional Instructions: You were seen in our ER for sequelae from a closed head injury. Your physical exam was grossly unremarkable. Your prior ER work-up that included CT head and neck images were reviewed and nonconcerning. It was disclosed based on nonconcerning physical exam findings, there is little indication for further diagnostic work-up in ER setting. You can take ibuprofen (Motrin/Advil) every 6 hours OR acetaminophen (Tylenol) every 4 hours as needed for pain or headache. Read and follow the attached head injury instructions and return as instructed. Return to the Urgent Care or Emergency Room if you have more than 2 episodes of vomiting, passes out, experiences a seizure, seems excessively sleepy, is having trouble talking/walking, isnt acting right, or if you have any other concerns Problem Qualifiers BENJAMIN BERMUDEZ DO Jul 19, 2020 17:08
[2020-07-19 17:09] VITALS: BP 119/75
== END 2020-07-19 17:19 | disposition home or self-care (01) ==
LOC: ER 16:30
DX: G43.909 Migraine, unspecified, not intractable, without status migrainosus (principal); F07.81 Postconcussional syndrome; M54.2 Cervicalgia; Z98.890 Other specified postprocedural states; Z88.0 Allergy status to penicillin
CPT/HCPCS: 99282

== ENCOUNTER 2020-12-28 12:41 | Emergency (ER) | payer OTHER ==
[~2020-12-28] VITALS: Ht 167.6 cm; Wt 89.0 kg
[2020-12-28] MEDS ORDERED: CYCLOBENZAPRINE 10 MG TABLET. PO ONE (13:00)
[2020-12-28] MEDS ORDERED: ACETAMINOPHEN 325 MG TABLET PO ONE (13:00)
[2020-12-28 13:03] VITALS: BP 127/81
[2020-12-28] MEDS ORDERED: CYCL-331 PO (13:06)
--- NOTE | 2020-12-28 13:06 | PHYS DOC ---
Past History Past Medical History: No Pertinent History, Migraines Past Surgical History: Other Additional Past Surgical Histo: [place] teeth Smoking: Non-smoker Alcohol Use: Occasionally Drug Use: None Adult General HPI HPI Patient is a [age] year old [sex] who presents with [] Review of Systems Review of Systems Fourteen body systems of review of systems have been reviewed. See HPI for pertinent positives and negative responses, other jordan all other systems are negative, non-pertinent or non-contributory Allergies Allergies Allergies Coded Allergies Type Severity Reaction Last Updated Verified Penicillins Allergy Unknown 07/19/20 Yes Physical Exam Physical Exam Constitutional: Well developed, well nourished, no acute distress, non-toxic appearance. HENT: Normocephalic, atraumatic, bilateral external ears normal, oropharynx moist, no oral exudates, nose normal. Eyes: PERRLA, EOMI, conjunctiva normal, no discharge. Neck: Normal range of motion, no tenderness, supple, no stridor. Cardiovascular: Heart rate regular, sinus rhythm, no murmurs rubs or gallops Lungs & Thorax: Bilateral breath sounds clear to auscultation Abdomen: Bowel sounds normal, soft and gravid with active movement palp ated, heart tones 155, no tenderness, no masses, no pulsatile masses. Nonsurgical abdomen, no peritoneal signs Skin: Warm, dry, no erythema, no rash. Back: No midline spinal tenderness or step-offs, patient points to left paralumbar muscles as primary source of pain that are tight and reproduces/exacerbates patient pain with palpation, no CVA tenderness. Extremities: No tenderness, no cyanosis, no clubbing, ROM intact, no edema. Neurologic: Alert and oriented X 3, 2+ patellar reflexes bilaterally, no saddle anesthesia, normal motor & sensory function, no focal deficits noted. Psychologic: Affect normal, judgement normal, mood normal. EKG EKG [] Radiology/Procedures Radiology/Procedures [] Heart Score C/O Chest Pain: No Risk Factors: Risk Factors: DM, Current or recent (<one month) smoker, HTN, HLP, family history of CAD, obesity. Risk Scores: Risk Factors: DM, Current or recent (<one month) smoker, HTN, HLP, family history of CAD, obesity. Course & Med Decision Making Course & Med Decision Making ABCs unremarkable. I disclosed entirety of ER findings and discussed most likely diagnosis of lower back pain that is likely from a strain versus other self- limiting condition that should respond to supportive care. I also have concern for viral syndrome in cannot exclude COVID-19 is diagnosis in an unvaccinated individual but patient deferred, she does not want to be swabbed as she is fearful as a swab and " I just do not want to know". Supportive care practices advised. Stretching, heating pad, use of Tylenol and short-term prescription for Flexeril given. Plan of care discussed at length with need for close outpatient follow-up to review today's ER visit stressed. Strict return precautions were also discussed at length with good understanding by patient. Patient voiced understanding and agreement with the plan. Patient knows to come back for repeat evaluation if concerning signs or symptoms present prior to outpatient follow-up. Hemodynamically stable, ambulatory and well-appearing at time of disposition. Dragon Disclaimer Dragon Disclaimer This electronic medical record was generated, in whole or in part, using a voice recognition dictation system. Departure Departure: Impression: Primary Impression: Lower back pain Additional Impressions: Viral syndrome and not yet delivered in third trimester Disposition: 01 HOME / SELF CARE / HOMELESS Condition: STABLE Referrals: [facility] (PCP) Patient Instructions: Back Exercises, Back Pain in Additional Instructions: You were evaluated in the Emergency Department today for back pain. Your evaluation suggests no acute abnormalities which require further intervention at this time. Your pain is most likely due to to a musculoskeletal cause that should improve with supportive care. - Move around as tolerated but avoiding heavy lifting. ``Bed rest is not recommended nor is it the best treatment for low back pain. - Medications will help control your discomfort: - -Tylenol - Do not drink alcohol, drive a car, operate machinery, or get up on ladders or heights when taking any prescribed pain medications. - Do not drive home if you received prescribed pain medications here in the ED. Return to the ED immediately if you develop any of the following problems: - Leaking urine or difficulty urinating; - Inability to control your bowels; - New numbness or weakness in your legs or numbness between your legs; - Inability to walk - Fever Scripts Cyclobenzaprine Hcl (CYCLOBENZAPRINE HCL) 10 Mg Tablet 1 TAB PO QHS for muscle spasm, #15 TAB Prov: BENJAMIN BERMUDEZ DO 12/28/20 Problem Qualifiers BENJAMIN BERMUDEZ DO Dec 28, 2020 13:06
== END 2020-12-28 13:30 | disposition home or self-care (01) ==
LOC: ER 12:41
DX: M54.5 Low back pain (principal); B34.9 Viral infection, unspecified; Z88.0 Allergy status to penicillin; Z20.822 Contact with and (suspected) exposure to COVID-19
CPT/HCPCS: 99283; C9803; U0003

== ENCOUNTER 2021-06-07 21:08 | Emergency (ER) | payer OTHER ==
[~2021-06-07] VITALS: Ht 167.6 cm; Wt 81.0 kg
[~2021-06-07 21:08] MED LIST changes: +CYCL10TA19 PO; +DICY20TA PO; -DICY20TA3 PO
--- NOTE | 2021-06-07 21:17 | PHYS DOC ---
Past History Past Medical History: No Pertinent History, Migraines Past Surgical History: Other Additional Past Surgical Histo: WISDOM TEETH Smoking: Non-smoker Alcohol Use: None Drug Use: None General Adult HPI: HPI: ".. I been breast pumping.. and my Lt breast has become very warm.. and tender... 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 breast pain, Pt. follows with Dr. Rivers. Patient does have a localized area of mastitis in the left breast. No axillary adenopathy. No striations. No obvious mass. Patient states she is allergic to penicillin. No recent travel. Up-to-date vaccinations. Normally follows at [place]. Review of Systems: Review of Systems: Constitutional: Denies fever or chills Eyes: Denies change in visual acuity HENT: Denies nasal congestion or sore throat Respiratory: Denies cough or shortness of breath Cardiovascular: Denies chest pain or edema. Complains of breast pain GI: Denies abdominal pain, nausea, vomiting, bloody stools or diarrhea : Denies dysuria Musculoskeletal: Denies back pain or joint pain Integument: Denies rash Neurologic: Denies headache, focal weakness or sensory changes Endocrine: Denies polyuria or polydipsia Lymphatic: Denies swollen glands Psychiatric: Denies depression or anxiety Family History: Family History: Noncontributory Current Medications: Current Meds: See nursing for home meds Allergies: Allergies: Allergies Coded Allergies Type Severity Reaction Last Updated Verified Penicillins Allergy Unknown 12/28/20 Yes Physical Exam: PE: Constitutional: Well developed, well nourished, moderate acute distress, non- toxic appearance. [] HENT: Normocephalic, atraumatic, bilateral external ears normal, oropharynx moist, no oral exudates, nose normal. [] Eyes: PERRLA, EOMI, conjunctiva normal, no discharge. [] Neck: Normal range of motion, no tenderness, supple, no stridor. [] Cardiovascular:Heart rate regular rhythm, no murmur [] Lungs & Thorax: Bilateral breath sounds clear to auscultation [.The] left breast swollen and edematous. Abdomen: Bowel sounds normal, soft, no tenderness, no masses, no pulsatile masses. [] Skin: Warm, dry, no erythema, no rash. [] Back: No tenderness, no CVA tenderness. [] Extremities: No tenderness, no cyanosis, no clubbing, ROM intact, no edema. [] Neurologic: Alert and oriented X 3, normal motor function, normal sensory fu nction, no focal deficits noted. [] Psychologic: Affect normal, judgement normal, mood normal. [] EKG: EKG: [] Radiology/Procedures: Radiology/Procedures: [] Heart Score: C/O Chest Pain: N/A Risk Factors: Risk Factors: DM, Current or recent (<one month) smoker, HTN, HLP, family history of CAD, obesity. Risk Scores: Score 0 - 3: 2.5% MACE over next 6 weeks - Discharge Home Score 4 - 6: 20.3% MACE over next 6 weeks - Admit for Clinical Observation Score 7 - 10: 72.7% MACE over next 6 weeks - Early Invasive Strategies Course & Med Decision Making: Course & Med Decision Making Pertinent Labs and Imaging studies reviewed. (See chart for details) Use warm compresses with salt water or Epson salts. At least 4 times a day. Continue to pump or breast-feed. Would not feed breast milk for the next 24 hours. Because of IM injection of Toradol. Take clindamycin 300 mg 3 times a day. At the end of clindamycin take Diflucan 100 mg x 3 days. Follow-up primary care. Return if any concerns. Tylenol as needed for pain. Marked pain may take Percocet. Must follow-up primary care. Impression: 1. Left mastitis [] Dragon Disclaimer: Valente Disclaimer: This electronic medical record was generated, in whole or in part, using a voice recognition dictation system. Departure Departure: Referrals: GABRIEL BLACKBURN H[facility] ADMINISTRATOR-C (PCP) Scripts Fluconazole (Diflucan) 100 Mg Tablet 100 MG PO DAILY for post antibiotics for 3 Days, #3 TAB Prov: AMINAH LANZA MD 06/07/21 Oxycodone HCl/Acetaminophen (Percocet 5-325 mg Tablet) 1 Each Tablet 1 TAB PO PRN QID PRN for breast mastitis MDD 4 Tablet(s), #30 TAB 0 Refills Prov: AMINAH LANZA MD 06/07/21 Clindamycin Hcl (CLINDAMYCIN HCL) 300 Mg Capsule 300 MG PO TID for mastitis for 30 Days, #90 CAP Prov: AMINAH LANZA MD 06/07/21 AMINAH LANZA MD Jun 07, 2021 21:17
[2021-06-07] MEDS ORDERED: CLINDAMYCIN HCL 150 MG CAPSULE PO ONE (22:15)
[2021-06-07] MEDS ORDERED: CLIN-95 PO (22:27)
[2021-06-07] MEDS ORDERED: OXYC-325 PO (22:27)
[2021-06-07] MEDS ORDERED: KETOROLAC 60 MG/2 ML VIAL. IM ONE (22:30)
[2021-06-07] MEDS ORDERED: ACETAMINOPHEN 500 MG TABLET PO ONE (22:30)
[2021-06-07] MEDS ORDERED: FLUC100T2 PO (22:32)
[2021-06-07 22:40] VITALS: BP 130/93
== END 2021-06-07 23:00 | disposition home or self-care (01) ==
LOC: ER 21:08
DX: N61.0 Mastitis without abscess (principal); G43.909 Migraine, unspecified, not intractable, without status migrainosus; Z88.0 Allergy status to penicillin
CPT/HCPCS: 96372; 99283; J1885

== ENCOUNTER 2021-07-19 16:25 | Emergency (ER) | payer OTHER ==
[~2021-07-19] VITALS: Ht 167.6 cm; Wt 89.5 kg
[~2021-07-19 16:25] MED LIST changes: +CLIN-95 PO; +FLUC100T2 PO; +OXYC-325 PO
[2021-07-19 16:40] VITALS: BP 111/69
[2021-07-19] MEDS ORDERED: CEPH500C PO (17:11)
--- NOTE | 2021-07-19 17:12 | PHYS DOC ---
Past History Past Medical History: No Pertinent History, Migraines Additional Past Surgical Histo: WISDOM TEETH Smoking: Non-smoker Alcohol Use: None Drug Use: None General Adult EDM: Chief Complaint: MULTIPLE COMPLAINTS HPI: HPI: Patient is a 25 year old female who presents with bilateral toe pain and hair l oss. Patient states she had her baby in april and has not had a pedicure since that time. She now has ingrown toenails on the right side of each great toe. Patient states they are tender and warm with some white-sofi discharge. Additionally, she has some hair loss around her hairline on her forehead, mostly on the right side. Patient reports associated scalp buildup/dandruff. She denies other complaints at this time. Review of Systems: Review of Systems: ROS negative or noncontributory except as mentioned in HPI. Allergies: Allergies: Allergies Coded Allergies Type Severity Reaction Last Updated Verified Penicillins Allergy Unknown 12/28/20 Yes Physical Exam: PE: Constitutional: Well developed, well nourished, no acute distress, non-toxic appearance. HENT: Normocephalic, atraumatic, bilateral external ears normal, nose normal, alopecia appreciated around the hairline R>L, significant scalp buildup that appears oily and in large conglomerations diffusely throughout hair. Eyes: EOMI, conjunctiva normal, no discharge. Neck: Normal range of motion, no stridor. Skin: Warm, dry, no erythema, no rash. Extremities: The right side of bilateral great toes are tender and erythematous without underlying fluctuance or surrounding induration, minimal amount of white discharge appreciated along the border of the nailbed bilaterally. Extremities otherwise no tenderness, no cyanosis, no clubbing, ROM intact, no edema. Neurologic: Alert and oriented x4, steady and symmetrical upright gait, no focal deficits noted. Current Patient Data: Vital Signs: VS - Last 72 Hours, by Label Date Time Temp Pulse Resp B/P (MAP) Pulse Ox O2 Delivery O2 Flow Rate FiO2 07/19/21 16:40 97.9 77 18 111/69 (83) 99 Room Air Heart Score: C/O Chest Pain: No Course & Med Decision Making: Course & Med Decision Making Pertinent Labs and Imaging studies reviewed. (See chart for details) Patient is a 25 year old female who presents with multiple complaints. Ingrown toenails appear to be infected without abscess formation. Patient provided with escript for Keflex and follow up information for Dr. Pritesh DPM. Patient is penicilln allergic with rash. Patient educated on potential cross- reactivity with penicillin allergic patients, and that the risk is low in non- anaphylactic allergies. Patient is comfortable with antibiotic choice. Patient given supportive measures for scalp build up and contact information for dermatology, though she may contact her PCP or mortar man for further management as well. Patient understands and is agreeable to treatment plan, follow up instructions and discharge. Dragon Disclaimer: Dragon Disclaimer: This electronic medical record was generated, in whole or in part, using a voice recognition dictation system. Departure Departure: Impression: Primary Impression: Ingrown toenail of both feet Additional Impression: alopecia Disposition: HOME / SELF CARE / HOMELESS Condition: STABLE Referrals: GABRIEL BLACKBURN (PCP) DEONTE ARREGUIN DPM Patient Instructions: Infected Ingrown Toenail Additional Instructions: [facility] Leonardo Hunt PA-C [address] [address] Hours: Thursday - Thursday 8:00 am - 5:00 pm [id number] T-Gel shampoo EMERGENCY DEPARTMENT GENERAL DISCHARGE INSTRUCTIONS Thank you for coming to [facility] (ED) today and trusting us with you care. We trust that you had a positive experience in our Emergency Department. If you wish to speak to the department management, you may call the director at [phone]. YOUR FOLLOW UP INSTRUCTIONS ARE FOLLOWS: 1. Follow up with your primary care doctor. If you do not have a primary doctor, please ask for a resource list of physicians or clinics that may be able to assist you with follow up care. 2. The emergency provider has interpreted your imaging studies, if any were ordered. The radiology maintenance specialist also reviewed them. If there is a change in the findings, you will be notified in 48 hours when at all possible. 3. If a lab test or culture has been done, your results will be reviewed and you will be notified if you need a change in treatment. 4. Follow instructions verbalized to you and refer to the printouts if needed. ADDITIONAL INSTRUCTIONS AND INFORMATION: 1. Your care today has been supervised by a physician who is specially trained in emergency care. Many problems require more than one evaluation for a complete diagnosis and treatment. We recommend that you schedule your follow up appointment as recommended to ensure complete treatment of you illness or injury. If you are unable to obtain follow up care and continue to have a problem, or if your condition worsens, we recommend that you return to the ED. 2. We are not able to safely determine your condition over the phone nor are we able to give sound medical advice over the phone. For these safety reasons, if you call for medical advice we will ask you to come to the ED for further evaluation. 3. If you have any questions regarding these discharge instructions please call the ED at [phone]. SAFETY INFORMATION: In the interest of safety, wellness, and injury prevention; we encourage you to wear your seat belt, if you smoke; quite smoking, and we encourage family to use a protective helmet for bicycling and other sporting events that present an increased risk for head injury. IF YOUR SYMPTOMS WORSEN OR NEW SYMPTOMS DEVELOP, OR YOU HAVE CONCERNS ABOUT YOUR CONDITION; OR IF YOUR CONDITION WORSENS WHILE YOU ARE WAITING FOR YOUR FOLLOW UP APPOINTMENT; EITHER CONTACT YOUR PRIMARY CARE DOCTOR, THE PHYSICIAN WHOSE NAME AND NUMBER YOU WERE GIVEN, OR RETURN TO THE ED IMMEDIATELY. Scripts Cephalexin (KEFLEX) 500 Mg Capsule 1 CAP PO BID for toenail infxn, #20 CAP Prov: PAMELLA JAMES 07/19/21 PAMELLA JAMES Jul 19, 2021 17:12
== END 2021-07-19 17:24 | disposition home or self-care (01) ==
LOC: ER 16:25
DX: L60.0 Ingrowing nail (principal); L65.0 Telogen effluvium; G43.909 Migraine, unspecified, not intractable, without status migrainosus; Z88.0 Allergy status to penicillin
CPT/HCPCS: 99283